=== PATIENT | male | born 1975 | race Caucasian/White ===

== ENCOUNTER 2023-07-12 05:14 | Outpatient (CLI) | payer OTHER, SELFPAY ==
[2023-07-12 08:48] LABS: HCT 50.1 % (40.0-50.0); HGB 16.9 g/dL (13.5-17.5); MCH 31.5 pg (27.0-33.0); MCHC 33.7 % (32.0-36.0); MCV 94 fL (80-95); MPV 11.2 fL (8.0-11.0); Platelet Count 273 10^3/uL (130-400); RBC 5.36 10^6/uL (4.36-5.78); RDW 13.1 % (11.8-14.1); WBC 6.04 10^3/uL (4.4-10.8)
[2023-07-12 09:36] LABS: ALT 28 U/L (16-63); AST 14 U/L (15-37); Albumin 4.4 g/dL (3.4-5.0); Alkaline Phosphatase 82 U/L (46-116); BUN 17 mg/dL (7-18); CREATININE 0.9 mg/dL (0.70-1.30); Calcium 9.1 mg/dL (8.5-10.1); Calculated LDL 89 mg/dL (<100); Chloride 104 mmol/L (98-107); Cholesterol 153 mg/dL (<200); Estimated GFR 104.05 (mL/min/1.73m2); Glucose 102 mg/dL (74-106); HDL Cholesterol 48 mg/dL (40-60); Potassium 4.5 mmol/L (3.5-5.1); Sodium 139 mmol/L (136-145); TSH (W/Ref FT4) 1.02 uIU/mL (0.36-3.74); Total Protein 7.5 g/dL (6.4-8.2); Triglyceride 83 mg/dL (<150)
[2023-07-12 18:24] LABS: PSA, Screening 1.2 ng/mL (<=3.5)
[2023-07-20 13:41] LABS: Testosterone, Free 21.4 ng/dL (4.06-15.6); Testosterone, Total 689 ng/dL (240-950)
== END 2023-07-12 05:15 | disposition home or self-care (01) ==
LOC: LBO 05:14
PROVIDERS: PCP Student in an Organized Health Care Education/Training Program; Visit Provider Student in an Organized Health Care Education/Training Program
DX: I10 Essential (primary) hypertension (principal); R73.03 Prediabetes; G47.33 Obstructive sleep apnea (adult) (pediatric); Z80.42 Family history of malignant neoplasm of prostate; Z91.89 Other specified personal risk factors, not elsewhere classified; Z13.220 Encounter for screening for lipoid disorders; R79.89 Other specified abnormal findings of blood chemistry; Z12.5 Encounter for screening for malignant neoplasm of prostate
CPT/HCPCS: 36415; 80053; 80061; 82306; 84153; 84402; 84403; 85027; 83735; 84443

== ENCOUNTER 2023-09-15 13:16 | Outpatient (CLI) | payer OTHER, SELFPAY ==
--- OUTSIDE RECORDS SUMMARY | 2023-09-15 13:43 | XMS_ITS | Referral Summary ---
Author Organization [facility] Address [address] [place] [address] Care Team Providers Care Catering And Events Manager Name Role Phone Unavailable Primary Care Provider Unavailabl e Encounters Date Type Department Care Team Description 07/12/2023 Lab Requisition [facility] Pathology & Laboratory Medicine - [facility] [address] [place] [address] Outr Resulting Lab, Provider from Last 3 Months Social History Tobacco Use Types Packs/Day Years Used Date Smoking Tobacco: Never Assessed Sex and Gender Information Value Date Recorded Sex Assigned at Not on file Gender Identity Not on file Sexual Orientation Not on file Plan of Treatment Not on file Procedures Procedure Name Priority Date/Time Associated Diagnosis Comments PSA TOTAL, DIAGNOSTIC Routine 07/12/2023 8:19 EDT from Last 3 Months Results * PSA TOTAL, DIAGNOSTIC (07/12/2023 8:19 EDT) PSA 1.2 <=3.5 ng/mL 07/12/2023 18:19 EDT [facility] Blood VENOUS BLOOD / Unknown 07/12/2023 8:19 EDT 07/12/2023 17:06 EDT Narrative [facility] - 07/12/2023 18:19 EDT NOTE: Serum PSA concentration should not be interpreted as absolute evidence for the presence or absence of malignant disease. Assayed on Siemens ADVIA Centaur XPT using chemiluminescent technology.??Values obtained by using different assay methods cannot be used interchangeably. Provider Outr Resulting Lab CHEMISTRY & BLOOD GAS ORDERABLES [facility] [address] [place], [place] [address] from Last 3 Months
--- OUTSIDE RECORDS SUMMARY | 2023-09-15 13:43 | XMS_ITS | Encounter Summary ---
Author Organization [facility] Address [address] [place] [address] Care Team Providers Care Leg Assembler Name Role Phone Unavailable Primary Care Provider Unavailabl e Encounter Details Date Type Department Care Team (Late st Contact Info) Description 07/12/2023 Lab Requisition [facility] Pathology & Laboratory Medicine - [facility] [address], [place] [id number] Outr Resulting Lab, Provider Social History Tobacco Use Types Packs/Day Years Used Date Smoking Tobacco: Never Assessed Sex and Gender Information Value Date Recorded Sex Assigned at Not on file Gender Identity Not on file Sexual Orientation Not on file documented as of this encounter Plan of Treatment Not on file documented as of this encounter Procedures Procedure Name Priority Date/Time Associated Diagnosis Comments PSA TOTAL, DIAGNOSTIC Routine 07/12/2023 8:19 EDT documented in this encounter Results * PSA TOTAL, DIAGNOSTIC (07/12/2023 8:19 EDT) PSA 1.2 <=3.5 ng/mL 07/12/2023 18:19 EDT [facility] Blood VENOUS BLOOD / Unknown 07/12/2023 8:19 EDT 07/12/2023 17:06 EDT Narrative [facility] - 07/12/2023 18:19 EDT NOTE: Serum PSA concentration should not be interpreted as absolute evidence for the presence or absence of malignant disease. Assayed on Siemens ADVIA Centaur XPT using chemiluminescent technology.??Values obtained by using different assay methods cannot be used interchangeably. Provider Outr Resulting Lab CHEMISTRY & BLOOD GAS ORDERABLES [facility] [address] [place] [address] documented in this encounter Visit Diagnoses Not on filedocumented in this encounter
--- OUTSIDE RECORDS SUMMARY | 2023-09-15 13:43 | XMS_ITS | Clinical Summary ---
Author Organization [facility] Address [address] [place] [id number] Care Team Providers Care Software Deployment Engineer Name Role Phone Unavailable Primary Care Provider Unavailabl e Encounters Date Type Department Care Team Description 07/12/[address] [facility] Pathology & Laboratory Medicine - [facility] [address] [place] [address] Outr Resulting Lab, Provider from Last 3 Months Social History Tobacco Use Types Packs/Day Years Used Date Smoking Tobacco: Never Assessed Sex and Gender Information Value Date Recorded Sex Assigned at Not on file Gender Identity Not on file Sexual Orientation Not on file Plan of Treatment Health Maintenance Due Date Last Done Comments Hepatitis C Screen 1975 Hepatitis B Vaccine (1 of 3 - 19+ 3-dose series) 03/17 COVID-19 Vaccine ( season) 2022 Procedures Procedure Name Priority Date/Time Associated Diagnosis Comments PSA TOTAL, DIAGNOSTIC Routine 07/12/2023 8:19 EDT from Last 3 Months Results * PSA TOTAL, DIAGNOSTIC (07/12/2023 8:19 EDT) PSA 1.2 <=3.5 ng/mL 07/12/2023 18:19 EDT [facility] Blood VENOUS BLOOD / Unknown 07/12/2023 8:19 EDT 07/12/2023 17:06 EDT Narrative [facility] - 07/12/2023 18:19 EDT NOTE: Serum PSA concentration should not be interpreted as absolute evidence for the presence or absence of malignant disease. Assayed on Siemens ADVIA Centaur XPT using chemiluminescent technology.??Values obtained by using different assay methods cannot be used interchangeably. Provider Outr Resulting Lab CHEMISTRY & BLOOD GAS ORDERABLES [facility] [address] [place] [address] from Last 3 Months
[2023-09-29 10:18] LABS: Testosterone, Free 12.8 ng/dL (4.06-15.6); Testosterone, Total 381 ng/dL (240-950)
== END 2023-09-15 13:17 | disposition home or self-care (01) ==
LOC: LBO 13:19
PROVIDERS: PCP Student in an Organized Health Care Education/Training Program; Visit Provider Student in an Organized Health Care Education/Training Program
DX: R79.89 Other specified abnormal findings of blood chemistry (principal); Z79.899 Other long term (current) drug therapy
CPT/HCPCS: 36415; 84402; 84403

== ENCOUNTER 2023-10-26 10:42 | Outpatient (REF) | payer OTHER, SELFPAY ==
[2023-10-27 10:24] LABS: HIV-1/2 Ag & Ab Screen Negative (Negative)
[2023-10-27 10:33] LABS: Hepatitis C Ab w Rflx HCV PCR Negative (Negative)
[2023-10-27 10:40] LABS: Syphilis Serology (RPR) Negative (Negative)
[2023-10-27 12:25] LABS: Chlamydia Result Negative (Negative); GC Result Negative (Negative)
== END 2023-10-26 10:43 | disposition home or self-care (01) ==
LOC: LBN 10:42
PROVIDERS: PCP Student in an Organized Health Care Education/Training Program; Visit Provider Physician Assistant Medical
DX: Z11.3 Encounter for screening for infections with a predominantly sexual mode of transmission (principal)
CPT/HCPCS: 86803; 87389; 87491; 87591; 86592

== ENCOUNTER 2024-03-22 04:49 | Outpatient (CLI) | payer OTHER, SELFPAY ==
[2024-03-22 21:26] LABS: PSA, Screening 1.5 ng/mL (<=3.5)
[2024-03-31 14:48] LABS: Testosterone, Free 24.2 ng/dL (4.06-15.6); Testosterone, Total 751 ng/dL (240-950)
== END 2024-03-22 04:50 | disposition home or self-care (01) ==
PROVIDERS: PCP Family Medicine; Visit Provider Nurse Practitioner Gerontology
DX: R39.9 Unspecified symptoms and signs involving the genitourinary system (principal); Z80.42 Family history of malignant neoplasm of prostate; R79.89 Other specified abnormal findings of blood chemistry; E29.1 Testicular hypofunction
CPT/HCPCS: 36415; 84153; 84402; 84403